=== PATIENT | female | born 1995 | race Caucasian/White ===

== ENCOUNTER → 2021-04-10 | Outpatient (CLI) | payer OTHER ==
[~2021-04-10] MED LIST: BARIUM SULFATE 700 MG TABLET (E-Z-DISK) As Ordered ONE; E-Z-PAQUE 96% w/w SUSP 176GM BTL As Ordered ONE; VARIBAR NECTAR 40% w/v 240ML SUSP BTL As Ordered ONE; VARIBAR PUDDING 40% w/v 230ML TUBE As Ordered ONE
== END ==
LOC: M RAD 10:42
PROVIDERS: ATTEND Otolaryngology
DX: Z53.20 Procedure and treatment not carried out because of patient's decision for unspecified reasons (principal)